=== PATIENT | female | born 1930 | race Caucasian/White ===

== ENCOUNTER → 2017-06-18 | Outpatient (CLI) | payer BC ==
[~2017-06-18] MED LIST: LEVO100T7 PO; MULT-602 PO; PRED10TA PO
[2017-06-18 16:39] LABS: BASO % 0.1 %; BASO ABS # 0.02 K/uL (0-0.2); COMPLETE YES; EOS % 0.1 %; HEMATOCRIT 41.5 % (37-47); IG% 0.6 %; LYMPH % 7.3 %; LYMPH ABS # 1.17 K/uL (1.2-3.4); MEAN CORPUSCULAR HEMOGLOBIN 28.7 pg (25-34); MEAN CORPUSCULAR HGB CONC 31.6 g/dl (32-36); MEAN PLATELET VOLUME 10.1 fL (7.4-10.4); NEUT % 87.9 %; PLATELET COUNT 429 K/uL (130-400); RED BLOOD COUNT 4.56 M/uL (4.2-5.4); WHITE BLOOD COUNT 15.94 K/uL (4.8-10.8)
[2017-06-18 17:15] LABS: ALT/SGPT 11 U/L (12-78); BLOOD UREA NITROGEN 10 mg/dl (7-18); BUN/CREATININE RATIO 12.3 (10-20); CALCIUM 8.7 mg/dl (8.5-10.1); CARBON DIOXIDE 28 mmol/L (21-32); CHLORIDE 106 mmol/L (98-107); CREATININE 0.83 mg/dl (0.60-1.20); GLUCOSE 115 mg/dl (70-99); POTASSIUM 4.2 mmol/L (3.5-5.1); SODIUM 141 mmol/L (136-145)
[2017-06-18 17:25] LABS: ALB/GLOB RATIO 0.8 (0.9-2); ALKALINE PHOSPHATASE 35 U/L (45-117); AST/SGOT 11 U/L (15-37)
--- NOTE | 2017-06-24 11:32 | CODING QUERY MEDICAL NECESSITY ---
CQSUPPORTING DIAGNOSIS NEEDED A supporting diagnosis is required for the test/procedure performed on this patient in order for us to be reimbursed by the patient's insurance. Please provide a supporting diagnosis for the following test/procedure listed below next to the test name along with your signature. *If there is no additional diagnosis for this patient that would support the following test/procedure please document that below next to the test/procedure. Test(s)/Procedure(s) that require a supporting diagnosis: DOS 06/18/17 VITAMIN D TEST Provider Signature: Date: Thank you Loren Mckeon Health Information Management Once completed, please kindly fax back to [phone] For questions please call [phone]
== END | disposition home or self-care (01) ==
LOC: C.LABBC 15:08
PROVIDERS: ATTEND Internal Medicine Geriatric Medicine
DX: J45.909 Unspecified asthma, uncomplicated (principal); M81.0 Age-related osteoporosis without current pathological fracture; E78.5 Hyperlipidemia, unspecified; E03.9 Hypothyroidism, unspecified; K06.8 Other specified disorders of gingiva and edentulous alveolar ridge; E55.9 Vitamin D deficiency, unspecified

== ENCOUNTER 2019-09-21 14:50 | Inpatient (IN) ==
[2019-09-21 15:34] LABS: Basophils # (auto) 0.02 K/uL (0-0.2); Basophils % (auto) 0.1 %; Eosinophils # (auto) 0.11 K/uL (0-0.5); Eosinophils % (auto) 0.6 %; Hematocrit (blood only) 41.3 % (37-47); Hemoglobin 13.7 g/dL (12.0-16.0); Immature Granulocytes # (auto) 0.11 K/uL (0.00-0.02); Immature Granulocytes % (auto) 0.6 %; Lymphocytes # (auto) 2.39 K/uL (1.2-3.4); Mean Corpuscular Hemoglobin 30.4 pg (25-34); Mean Corpuscular Hgb Conc 33.2 g/dL (32-36); Mean Corpuscular Volume 91.8 fL (80-100); Mean Platelet Volume 9.9 fL (7.4-10.4); Monocytes # (auto) 1.82 K/uL (0.11-0.59); Monocytes % (auto) 10.7 %; Neutrophils # (auto) 12.62 K/uL (1.4-6.5); Platelet Count 311 K/uL (130-400); RDW Coefficient of Variation 13.4 % (11.5-14.5); RDW Standard Deviation 44.8 fL (36.4-46.3); White Blood Count 17.07 K/uL (4.8-10.8)
[2019-09-21 15:50] LABS: Alanine Aminotransferase 11 U/L (12-78); Albumin Level 3.7 gm/dl (3.4-5.0); Aspartate Aminotransferase 9 U/L (15-37); BUN Creatinine Ratio 19.3 (10-20); Blood Urea Nitrogen 16 mg/dl (7-18); Calcium 9.2 mg/dl (8.5-10.1); Carbon Dioxide 25 mmol/L (21-32); Chloride 106 mmol/L (98-107); Est GFR (African American) 74.6; Est GFR (Non-African American) 64.4; Glucose 92 mg/dl (70-99); Potassium 3.4 mmol/L (3.5-5.1); Sodium 141 mmol/L (136-145)
--- NOTE | 2019-09-21 15:52 | Emergency Department Note ---
General (ED) Blank Date of Service September 21, 2019 ED Visit Note I attest that I saw and examined this patient and participated in her care under the direction of Dr. Mendoza. Please see his note for clinical assessment and course. Resident Activity Tracking Resident Involvement: Resident Care Provided Care Provided: Adult ED
[2019-09-21 15:53] LABS: Albumin Globulin Ratio 1.1 (0.9-2); Alkaline Phosphatase 26 U/L (45-117); Bilirubin,Total 0.7 mg/dl (0.2-1); Globulin 3.2 gm/dl (2.5-4.0); Total Protein 6.9 gm/dl (6.4-8.2)
[2019-09-21 15:55] LABS: Partial Thromboplastin Ratio 0.8; Partial Thromboplastin Time 21.9 Seconds (21.0-31.0); Prothrombin Time 10.1 Seconds (9.0-12.0)
[2019-09-21] MEDS ORDERED: IOVERSOL 100ml IV PRN ×2 (16:07→16:13)
--- NOTE | 2019-09-21 16:45 | CT Scan Report ---
CHEST CT WITH CONTRAST CT DOSE: 169.70 mGy.cm HISTORY: Patient presents with a right-sided chest wall mass. right chest wall mass TECHNIQUE: Multiaxial CT images of the chest were performed following the IV administration of 93 cc of Optiray 320. A dose lowering technique was utilized adhering to the principles of ALARA. COMPARISON: None. FINDINGS: Mild cardiomegaly. Coronary arterial calcifications are noted. Fusiform dilation of the ascending tho racic aorta, 4.0 x 4.0 cm. No dissection. Extensive calcified plaque of the thoracic aorta with tortu osity of the descending thoracic aorta. Patency of the imaged great vessels. The opacified pulmonary artery appears unremarkable. There is no pneumothorax or pleural effusion. Mild subpleural bleb forma tion of the lung apices. No overt pulmonary edema or focal airspace consolidation to suggest pneumoni a. Mild subsegmental bibasilar atelectasis. There are no enlarged mediastinal or hilar lymph nodes id entified. Pathologically enlarged right axillary lymph nodes measure up to 2.3 x 1.4 cm. There is a l arge heterogeneously enhancing irregular spiculated mass of the superior right breast measuring up to 4.2 x 3.3 x 3.3 cm with a large terminal component measuring up to 2.7 cm along its superior margin. Additionally, there are multiple additional separate enhancing masses within additional quadrants of the breast measuring up to 1.6 cm. Dermal thickening is noted throughout the right breast as well. Large hiatal hernia. Indeterminate 8 mm hypodense lesion of the right hepatic lobe. Degenerative edmond ges of the spine and shoulders. No suspicious lytic or blastic bony lesions. IMPRESSION: 1. Multiple enhancing masses throughout several quadrants of the right breast compatible with multice ntric breast cancer, the largest mass measures up to 4.2 cm and demonstrates a large dermal component of the superior right breast. Associated pathologic normal thickening is also noted throughout the r ight breast. Correlation with diagnostic mammogram and ultrasound is needed. 2. Metastatic right axillary adenopathy. 3. No acute intrathoracic abnormality. 4. Fusiform dilation of the ascending thoracic aorta, 4.0 x 4.0 cm. 5. Large hiatal hernia. Electronically signed by: Rehan Subramanian M.D. 09/21/2019 4:44 PM
--- NOTE | 2019-09-21 19:31 | Emergency Department Note ---
Entered by Coco Ocampo acting as a scribe for ED Provider Note CHIEF COMPLAINT: Rectal bleed HISTORY OF PRESENT ILLNESS: The patient is an 89 year old female who presents to the Emergency Room with complaints of rectal bleeding since yesterday morning. She states the bowl was full of "bright red blood" after a bowel movement. She did not feel short of breath, dizzy or weak, so she went about her day. This morning, she had 3 ep isodes of bright red blood with bowel movements, so she called her daughter and was referred here to the ED as she complained of feeling weak. She does not take daily blood thinners. She denies any abdominal pain. The patient does complain of a mass on her left breast that she has had since the summer. She states she has been putting Neosporin on it, and denies getting any drainage from the mass. Pt denies LOC, headache, fevers, chills, loss of weight, diaphoresis, visual changes, neck pain, chest pain, breathing difficulties, nausea, vomiting, abdominal pain, back pain, melena, urinary symptoms, numbness, weakness, lymphadenopathy, rash, or other complaints. REVIEW OF SYSTEMS: See HPI for pertinent positives and negatives. A total of ten systems were reviewed and were otherwise negative. PMHx/PSHx: Asthma. Hyperthyroidism. SOCIAL HISTORY: Patient lives at home. PHYSICAL EXAM: GENERAL: Awake, alert, well-appearing, in no distress HENT: Normocephalic, atraumatic. Oropharynx unremarkable. EYES: PERRL. Normal conjunctiva. Sclera non-icteric. NECK: Inspection normal. Non-tender. Supple. No nuchal rigidity. FROM. No masses. RESPIRATORY: Clear to auscultation. No wheezes. No rales. Normal respiratory effort. CARDIAC: Normal rate. Normal rhythm. No murmurs. No rubs. Extremities warm and well perfused. Pulses equal. No JVD. CHEST: Large round indurated mass in the right breast, no drainage. GI: Soft, non-distended. No tenderness to palpation. No rebound or guarding. No masses. RECTAL: Performed by Dr. Elza Mak, DO, rust colored stool, heme positive. MUSCULOSKELETAL: Atraumatic. Chest examination reveals no tenderness. The back is symmetrical on inspection without obvious abnormality. There is no CVA tenderness to palpation. No joint edema. LOWER EXTREMITIES: Calves are equal size bilaterally and non-tender. No edema. No discoloration. NEURO: Normal sensorium. No sensory or motor deficits noted. SKIN: No rash or jaundice noted. EMERGENCY DEPARTMENT COURSE: 1510: Past medical records reviewed. The patient was evaluated in room A4B, and a complete history and physical examination were performed. 1726: I reevaluated and discussed test results with the patient. I discussed further hospitalization with her and she is agreeable. 1757: I spoke with Dr. Nia Herron about the patient's case and he will turn the patient over to Dr. Benjamin Herron. 1917: I spoke with Dr. Benjamin Herron about the patient's case and he will accept the patient for further evaluation. MEDICAL DECISION MAKING: Triage Nursing notes reviewed and agree them. Additional history obtained from the the patient's daughter. The patient's history was concerning for possible gastrointestinal bleeding. Differential diagnosis: Etiologies such as diverticulosis, AVM, coagulopathy, colitis, inflammatory bowel disease, malignancy,Niurka-Flanagan tear, esophagitis, peptic ulcer disease, variceal bleed, gastritis, epistaxis, fissure, hemorrhoids, as well as others were entertained. Physical exam: As above. The patient has a large mass in the right breast. This is concerning for malignancy. ER treatment provided: Monitoring On reassessment the patient remained stable. No additional bleeding. Diagnostics interpreted by me: ECG: Sinus rhythm. The labs revealed a leukocytosis on CBC. Chemistry panel was unremarkable. Imaging studies: CT imaging of the chest was performed and reveals a very concerning right breast mass and lymphadenopathy. Patient was informed. Further management will be necessary in the hospital. Consultation: A consultation was placed with the hospitalist. The case was discussed and diagnostics were reviewed. The patient was evaluated in the ER for further treatment. The patient was seen and examined with Dr. Elza Westfall, resident physician. We discussed the case and treatments ordered, reviewed the results, and determine the disposition. I have been directly involved with the management and disposition as well as independently evaluated the patient as documented in this note. IMPRESSION: GI Bleed, Right breast mass, Weakness, and Leukocytosis. PLAN: Admitted to Dr. Nia Herron. The scribe's documentation has been prepared under my direction and personally reviewed by me in its entirety. I confirm that the note above accurately reflects all work, treatment, procedures, and medical decision making performed by me. 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 Beliefs That Will Affect Care: None marital status: / Current Living Situation: Family Feels Safe at Home: Yes Smoking Status: Unknown if ever smoked Hx Alcohol Use: No Hx Substance Use: No Results & Data Vital Signs Vital Signs - 24 hr 09/21/19 14:52 09/21/19 15:16 09/21/19 16:15 Temperature 36.3 C L Temperature Source Oral Pulse Rate 79 Pulse Rate [Apical] 77 Pulse Rate from SpO2 Sensor Pulse Rhythm Regular Pulse Rhythm [Apical] Regular Pulse Strength Normal Pulse Strength [Apical] Normal Respiratory Rate 20 18 Respiratory Effort / Characteristics Non-Labored Non-Labored Spontaneous Respiratory Depth Normal Normal Respiratory Pattern Regular Regular Blood Pressure 126/83 Blood Pressure [Right Arm] 135/72 Blood Pressure Mean 97 Blood Pressure Mean [Right Arm] 93 Blood Pressure Position Sitting Blood Pressure Position [Right Arm] Lying Pulse Oximetry 98 99 95 Oxygen Delivery Method Room Air Room Air Room Air Sepsis Recent Fever Within 48 Hours No Sepsis New/Unexplained Change in Mental Status No Sepsis Action Taken by Nursing No Action Required 09/21/19 17:48 09/21/19 18:00 09/21/19 18:01 Temperature Temperature Source Pulse Rate 84 80 Pulse Rate [Apical] 78 Pulse Rate from SpO2 Sensor 79 80 Pulse Rhythm Pulse Rhythm [Apical] Regular Pulse Strength Pulse Strength [Apical] Normal Respiratory Rate 16 19 18 Respiratory Effort / Characteristics Non-Labored Spontaneous Respiratory Depth Normal Respiratory Pattern Regular Blood Pressure 112/69 Blood Pressure [Right Arm] 114/72 Blood Pressure Mean 74 Blood Pressure Mean [Right Arm] 86 Blood Pressure Position Blood Pressure Position [Right Arm] Lying Pulse Oximetry 96 92 93 Oxygen Delivery Method Room Air Room Air Room Air Sepsis Recent Fever Within 48 Hours Sepsis New/Unexplained Change in Mental Status Sepsis Action Taken by Nursing 09/21/19 18:30 09/21/19 18:31 09/21/19 19:00 Temperature Temperature Source Pulse Rate 82 84 82 Pulse Rate [Apical] Pulse Rate from SpO2 Sensor 82 86 82 Pulse Rhythm Pulse Rhythm [Apical] Pulse Strength Pulse Strength [Apical] Respiratory Rate 20 20 15 Respiratory Effort / Characteristics Respiratory Depth Respiratory Pattern Blood Pressure 113/77 117/65 Blood Pressure [Right Arm] Blood Pressure Mean 82 72 Blood Pressure Mean [Right Arm] Blood Pressure Position Blood Pressure Position [Right Arm] Pulse Oximetry 94 93 94 Oxygen Delivery Method Room Air Room Air Room Air Sepsis Recent Fever Within 48 Hours Sepsis New/Unexplained Change in Mental Status Sepsis Action Taken by Nursing 09/21/19 19:01 09/21/19 19:30 09/21/19 19:31 Temperature Temperature Source Pulse Rate 78 73 99 H Pulse Rate [Apical] Pulse Rate from SpO2 Sensor 80 Pulse Rhythm Pulse Rhythm [Apical] Pulse Strength Pulse Strength [Apical] Respiratory Rate 24 21 23 Respiratory Effort / Characteristics Respiratory Depth Respiratory Pattern Blood Pressure 144/71 H Blood Pressure [Right Arm] Blood Pressure Mean 118 Blood Pressure Mean [Right Arm] Blood Pressure Position Blood Pressure Position [Right Arm] Pulse Oximetry 94 96 95 Oxygen Delivery Method Room Air Room Air Room Air Sepsis Recent Fever Within 48 Hours Sepsis New/Unexplained Change in Mental Status Sepsis Action Taken by Retirement Medications Current Medication List: was personally reviewed by me Laboratory Data Attestation: I reviewed the patient's lab results. Result diagrams: 09/26/19 04:34 09/26/19 04:34 Lab Results 09/21/19 09/21/19 09/21/19 Range/Units 15:21 15:21 15:21 WBC 17.07 H (4.8-10.8) K/uL RBC 4.50 (4.2-5.4) M/uL Hgb 13.7 (12.0-16.0) g/dL Hct 41.3 (37-47) % MCV 91.8 (80-100) fL MCH 30.4 (25-34) pg MCHC 33.2 (32-36) g/dL RDW Std Deviation 44.8 (36.4-46.3) fL RDW Coeff of Sam 13.4 (11.5-14.5) % Plt Count 311 (130-400) K/uL MPV 9.9 (7.4-10.4) fL Immature Gran % (Auto) 0.6 % Neut % (Auto) 74.0 % Lymph % (Auto) 14.0 % [place] % (Auto) 10.7 % Eos % (Auto) 0.6 % Baso % (Auto) 0.1 % Immature Gran # (Auto) 0.11 H (0.00-0.02) K/uL Neut # (Auto) 12.62 H (1.4-6.5) K/uL Lymph # (Auto) 2.39 (1.2-3.4) K/uL [place] # (Auto) 1.82 H (0.11-0.59) K/uL Eos # (Auto) 0.11 (0-0.5) K/uL Baso # (Auto) 0.02 (0-0.2) K/uL PT 10.1 (9.0-12.0) Seconds INR 1.0 (0.9-1.1) APTT 21.9 (21.0-31.0) Seconds PTT Ratio 0.8 Sodium 141 (136-145) mmol/L Potassium 3.4 L (3.5-5.1) mmol/L Chloride 106 (98-107) mmol/L Carbon Dioxide 25 (21-32) mmol/L Anion Gap 10.0 (3-11) BUN 16 (7-18) mg/dl Creatinine 0.81 (0.6-1.2) mg/dl Est Cr Clr Drug Dosing Not Reportable Est GFR ( Amer) 74.6 Est GFR (Non-Af Amer) 64.4 BUN/Creatinine Ratio 19.3 (10-20) Glucose 92 (70-99) mg/dl Calcium 9.2 (8.5-10.1) mg/dl Total Bilirubin 0.7 (0.2-1) mg/dl AST 9 L (15-37) U/L ALT 11 L (12-78) U/L Alkaline Phosphatase 26 L (45-117) U/L Total Protein 6.9 (6.4-8.2) gm/dl Albumin 3.7 (3.4-5.0) gm/dl Globulin 3.2 (2.5-4.0) gm/dl Albumin/Globulin Ratio 1.1 (0.9-2) Blood Type Antibody Screen 09/21/19 09/21/19 Range/Units 15:21 19:57 WBC 16.41 H (4.8-10.8) K/uL RBC 4.22 (4.2-5.4) M/uL Hgb 12.8 (12.0-16.0) g/dL Hct 38.5 (37-47) % MCV 91.2 (80-100) fL MCH 30.3 (25-34) pg MCHC 33.2 (32-36) g/dL RDW Std Deviation 43.9 (36.4-46.3) fL RDW Coeff of Sam 13.3 (11.5-14.5) % Plt Count 294 (130-400) K/uL MPV 9.6 (7.4-10.4) fL Immature Gran % (Auto) 0.5 % Neut % (Auto) 77.9 % Lymph % (Auto) 12.9 % [place] % (Auto) 7.9 % Eos % (Auto) 0.6 % Baso % (Auto) 0.2 % Immature Gran # (Auto) 0.09 H (0.00-0.02) K/uL Neut # (Auto) 12.77 H (1.4-6.5) K/uL Lymph # (Auto) 2.12 (1.2-3.4) K/uL [place] # (Auto) 1.30 H (0.11-0.59) K/uL Eos # (Auto) 0.10 (0-0.5) K/uL Baso # (Auto) 0.03 (0-0.2) K/uL PT (9.0-12.0) Seconds INR (0.9-1.1) APTT (21.0-31.0) Seconds PTT Ratio Sodium (136-145) mmol/L Potassium (3.5-5.1) mmol/L Chloride (98-107) mmol/L Carbon Dioxide (21-32) mmol/L Anion Gap (3-11) BUN (7-18) mg/dl Creatinine (0.6-1.2) mg/dl Est Cr Clr Drug Dosing Est GFR ( Amer) Est GFR (Non-Af Amer) BUN/Creatinine Ratio (10-20) Glucose (70-99) mg/dl Calcium (8.5-10.1) mg/dl Total Bilirubin (0.2-1) mg/dl AST (15-37) U/L ALT (12-78) U/L Alkaline Phosphatase (45-117) U/L Total Protein (6.4-8.2) gm/dl Albumin (3.4-5.0) gm/dl Globulin (2.5-4.0) gm/dl Albumin/Globulin Ratio (0.9-2) Blood Type O Positive Antibody Screen NEGATIVE Administered Medications Discontinued Medications Iron Sucrose 100 mg/ Sodium (Chloride) 105 mls @ 420 mls/hr IV TODAY@1145 ONE Stop: 09/26/19 11:59 Last Infusion: 09/26/19 12:52 Dose: 0 mls/hr Documented by: [id number] Admin: 09/26/19 12:25 Dose: 420 mls/hr Documented by: [id number] Influenza Virus Vaccine (Fluzone High-Dose Pf) 0.5 ml IM .ONCE ONE Stop: 09/21/19 22:01 Last Admin: 09/26/19 13:26 Dose: Not Given Documented by: [id number] Ioversol (Optiray 320 100ml) 93 ml IV ONCE PRN PRN Reason: Interaction Checking Stop: 09/25/19 16:12 Last Admin: 09/21/19 16:13 Dose: 93 ml Documented by: [id number] Ioversol (Optiray 320 100ml) 91 ml IV ONCE PRN PRN Reason: Interaction Checking Stop: 09/26/19 17:24 Last Admin: 09/22/19 17:26 Dose: 91 ml Documented by: [id number] Levothyroxine Sodium (Synthroid) 75 mcg PO DAILYBB ROXY Stop: 10/22/19 06:29 Last Admin: 09/26/19 06:25 Dose: 75 mcg Documented by: [id number] Admin: 09/25/19 05:54 Dose: 75 mcg Documented by: [id number] Admin: 09/24/19 05:31 Dose: 75 mcg Documented by: [id number] Admin: 09/23/19 10:57 Dose: 75 mcg Documented by: [id number] Admin: 09/23/19 05:39 Dose: Not Given Documented by: [id number] Admin: 09/22/19 05:24 Dose: 75 mcg Documented by: [id number] Lidocaine HCl (Xylocaine 2%) Confirm Administered Dose 2 ml INFIL .STK-MED ONE Stop: 09/25/19 15:17 Last Admin: 09/25/19 17:40 Dose: Not Given Documented by: [id number] Magnesium Citrate (Citrate) 296 ml PO TODAY@1600 [facility] Stop: 09/22/19 23:59 Last Admin: 09/22/19 17:40 Dose: 296 ml Documented by: [id number] Magnesium Citrate (Citrate) 296 ml PO NOW STA Stop: 09/24/19 15:42 Last Admin: 09/24/19 16:46 Dose: 296 ml Documented by: [id number] Phenylephrine HCl (Eber-Synephrine 500mcg/5ml) Confirm Administered Dose 100 mcg .ROUTE .STK-MED ONE Stop: 09/25/19 15:17 Last Admin: 09/25/19 17:40 Dose: Not Given Documented by: [id number] Polyethylene Glycol (Miralax) 238 gm PO DAILY@0900 [facility] Stop: 09/24/19 16:00 Last Admin: 09/24/19 10:07 Dose: 238 gm Documented by: [id number] Prednisone (Prednisone) 10 mg PO DAILY [facility] Stop: 10/22/19 08:59 Last Admin: 09/26/19 08:38 Dose: 10 mg Documented by: [id number] Admin: 09/25/19 09:09 Dose: 10 mg Documented by: [id number] Admin: 09/24/19 08:56 Dose: 10 mg Documented by: [id number] Admin: 09/23/19 09:36 Dose: 10 mg Documented by: [id number] Admin: 09/22/19 09:28 Dose: 10 mg Documented by: [id number] Propofol (Diprivan) Confirm Administered Dose 400 mg IV .STK-MED ONE Stop: 09/25/19 15:17 Last Admin: 09/25/19 17:40 Dose: Not Given Documented by: [id number] Sodium Biphosphate/Sodium Phosphate (Fleet Enema) 132 ml PA NOW STA Stop: 09/25/19 06:59 Last Admin: 09/25/19 08:00 Dose: 132 ml Documented by: [id number] Imaging Data Radiologist's Impression: Radiology results as stated below per my review and the radiologist's interpretation: CHEST CT WITH CONTRAST CT DOSE: 169.70 mGy.cm HISTORY: Patient presents with a right-sided chest wall mass. right chest wall mass TECHNIQUE: Multiaxial CT images of the chest were performed following the IV administration of 93 cc of Optiray 320. A dose lowering technique was utilized adhering to the principles of ALARA. COMPARISON: None. FINDINGS: Mild cardiomegaly. Coronary arterial calcifications are noted. Fusiform dilation of the ascending thoracic aorta, 4.0 x 4.0 cm. No dissection. Extensive calcified plaque of the thoracic aorta with tortuosity of the descending thoracic aorta. Patency of the imaged great vessels. The opacified pulmonary artery appears unremarkable. There is no pneumothorax or pleural effusion. Mild subpleural bleb formation of the lung apices. No overt pulmonary edema or focal airspace consolidation to suggest pneumonia. Mild subsegmental bibasilar atelectasis. There are no enlarged mediastinal or hilar lymph nodes identified. Pathologically enlarged right axillary lymph nodes measure up to 2.3 x 1.4 cm. There is a large heterogeneously enhancing irregular spiculated mass of the superior right breast measuring up to 4.2 x 3.3 x 3.3 cm with a large terminal component measuring up to 2.7 cm along its superior margin. Additionally, there are multiple additional separate enhancing masses within additional quadrants of the breast measuring up to 1.6 cm. Dermal thickening is noted throughout the right breast as well. Large hiatal hernia. Indeterminate 8 mm hypodense lesion of the right hepatic lobe. Degenerative changes of the spine and shoulders. No suspicious lytic or blastic bony lesions. IMPRESSION: 1. Multiple enhancing masses throughout several quadrants of the right breast compatible with multicentric breast cancer, the largest mass measures up to 4.2 cm and demonstrates a large dermal component of the superior right breast. Associated pathologic normal thickening is also noted throughout the right breast. Correlation with diagnostic mammogram and ultrasound is needed. 2. Metastatic right axillary adenopathy. 3. No acute intrathoracic abnormality. 4. Fusiform dilation of the ascending thoracic aorta, 4.0 x 4.0 cm. 5. Large hiatal hernia. Electronically signed by: Rehan Subramanian M.D. 09/21/2019 4:44 PM ECG Data Attestation: I personally reviewed and interpreted this ECG as follows: Indication: + weakness Rate (beats per minute): 85 Rhythm: sinus with SA ECG Intervals/blocks: + Normal QRS ECG [place]: + Normal ECG ST segments: no ST depression and no ST elevation ECG Findings: no PACs and no PVCs Blood Pressure Blood Pressure Findings: Normal blood pressure Blood Pressure Disposition: further management by hospitalist Discharge Plan Visit Data *Final* Discharge Date/Time: 09/21/19 21:00 Chief Complaint: Rectal Bleed Stated Complaint: RECTAL BLEEDING ED Provider: Mamadou Mendoza ED Midlevel Provider: Elza Mak Discharge Problem: Lower gastrointestinal hemorrhage Patient Disposition: Admitted As Inpatient Condition: Good Discharge Instructions Interventions: ED Discharge Assessment Last Done: 09/21/19 21:00 The scribe's documentation has been prepared under my direction and personally reviewed by me in its entirety. I confirm that the note above accurately reflects all work, treatment, procedures, and medical decision making performed by me.
[2019-09-21 20:09] LABS: Basophils # (auto) 0.03 K/uL (0-0.2); Basophils % (auto) 0.2 %; Eosinophils % (auto) 0.6 %; Hematocrit (blood only) 38.5 % (37-47); Hemoglobin 12.8 g/dL (12.0-16.0); Immature Granulocytes # (auto) 0.09 K/uL (0.00-0.02); Immature Granulocytes % (auto) 0.5 %; Lymphocytes # (auto) 2.12 K/uL (1.2-3.4); Lymphocytes % (auto) 12.9 %; Mean Corpuscular Hemoglobin 30.3 pg (25-34); Mean Corpuscular Hgb Conc 33.2 g/dL (32-36); Mean Corpuscular Volume 91.2 fL (80-100); Mean Platelet Volume 9.6 fL (7.4-10.4); Monocytes % (auto) 7.9 %; Neutrophils # (auto) 12.77 K/uL (1.4-6.5); Neutrophils % (auto) 77.9 %; Platelet Count 294 K/uL (130-400); RDW Coefficient of Variation 13.3 % (11.5-14.5); RDW Standard Deviation 43.9 fL (36.4-46.3); Red Blood Count 4.22 M/uL (4.2-5.4); White Blood Count 16.41 K/uL (4.8-10.8)
--- NOTE | 2019-09-21 20:38 | History & Physical Report ---
Date of Service September 21, 2019 Assessment & Plan (1) Lower gastrointestinal hemorrhage: Ms. De Souza is an 89-year-old female with a past medical history of asthma, and hypothyroidism who presents to [facility] due to rectal bleeding. Breast cancer with metastases to axillary lymph nodes -Admit to med/surg -Mass noted on physical examination of right breast -CT chest revealed "multiple enhancing masses throughout the right breast compatible with multicentric breast cancer, with the largest mass measuring up to 4.2 cm. This is associated with metastatic right axillary adenopathy" -This is a new finding for the patient, and was discussed extensively with her and her family -Family wishes for patient to have full diagnostic work-up, and will consider treatment options going forward -Patient explicitly stated she would not want to have surgery -Hematology/oncology consulted for assistance with diagnostic work-up Lower GI bleed -Vitals stable -Hemoccult positive in ER, with hemorrhoids noted on rectal exam -the amount of blood passed does not seem consistent w/just hemorrhoids -> concerning for GI pathology as well -will order CT abdomen & pelvis to evaluate for metastatic disease -GI consulted -Hgb normal at 12.8, however did drop slightly from 13.7 on admission -monitor H&H, patient has been type and screened in case transfusion becomes necessary Thoracic aortic aneurysm -CT chest shows a 4 x 4 cm fusiform dilation of the ascending thoracic aorta -Outpatient follow-up recommended Asthma -No signs or symptoms of exacerbation at this time Hypothyroidism -Continue home levothyroxine ?Autoimmune disorder -Patient and her daughter report that she has been on 10 mg of prednisone for years for her asthma and for 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 De Souza is an 89-year-old female with a past medical history of asthma, and hypothyroidism who presents to [facility] due to rectal bleeding. The patient states that she was in her usual state of health, until yesterday morning, when she had an episode of bright red blood per rectum. She states that the blood was mixed in with her stool, however she passed lots of blood, which she stated filled up the entire toilet bowl. She denies any abdominal pain, or pain with passing bowel movements. She had another episode of the same this morning, which prompted her to come to the emergency department. She denies associated chest pain, shortness of breath or lightheadedness. She states that this has not happened to her in the past. She reports her last colonoscopy was approximately 15 years ago, and was normal. She denies a prior history of hemorrhoids. She has never had coffee-ground emesis. Of note, she has a mass in her right breast, which has been giving her some discomfort of late. She has been putting neosporin on it, which she states has not helped much. She states that her last mammogram was approximately 30 years ago, normal. She denies any fever, chills, appetite loss, or weight loss. Allergies Allergy/AdvReac Type Severity Reaction Status Date / Time Sulfa (Sulfonamide Allergy Unknown Unknown Verified 09/21/19 15:31 Antibiotics) theophylline Allergy Unknown Unknown Verified 09/21/19 15:31 Home Medications Home Medications Medication Instructions Recorded Confirmed Type prednisone 10 mg tablet 10 mg PO DAILY #30 tab 09/11/19 09/21/19 Rx levothyroxine 75 mcg PO QAM 09/21/19 09/21/19 History Past Med/Surg History Medical History Asthma Hypothyroidism No significant past surgical history Social History Preferred Language: Nepali Communication Ability: Effective Measurement Analyst Required: No Beliefs That Will Affect Care: None marital status: / Current Living Situation: Family Feels Safe at Home: Yes Smoking Status: Unknown if ever smoked Hx Alcohol Use: No Hx Substance Use: No Review of Systems Constitutional: no fever, no chills, no fatigue and no anorexia Respiratory: no cough, no dyspnea and no wheezing Cardiovascular: no chest pain, no palpitations, no syncope, no edema and no calf pain Gastrointestinal: + change in bowel habits; no abdominal pain, no nausea, no vomiting, no coffee ground emesis and no hematemesis Genitourinary: no dysuria and no difficulty urinating Physical Exam Constitutional: WD/WN, vitals as above + hard of hearing Eyes: PERRL, conjunctivae normal, anicteric sclerae ENMT: external ear and nose normal, oropharynx normal Respiratory: normal respiratory effort, lungs clear to auscultation Cardiovascular: RRR, no murmur, no edema Vessels: posterior tibial pulses present and dorsalis pedis pulses present Extremities: normal capillary refill; no calf tenderness and no pedal edema Gastrointestinal (Abdomen): normal bowel sounds, soft, nontender, no hepatosplenomegaly Musculoskeletal: no cyanosis or clubbing, extremities motor strength 5/5 Head/Neck/Chest: + abnormal inspection of chest wall (3-4cm indurated mass in right breast w/surrounding erythema, no drainage) Neurologic: PERRL, EOMI, accommodation nl, no face palsy, no dysarthria Results & Data Vital Signs (Past 12 Hours) Vital Signs Temp Pulse Pulse Resp BP BP Pulse Ox 09/21/19 19:31 99 H 23 144/71 H 95 09/21/19 19:30 73 21 96 09/21/19 19:01 78 24 94 09/21/19 19:00 82 15 117/65 94 09/21/19 18:31 84 20 93 09/21/19 18:30 82 20 113/77 94 09/21/19 18:01 80 18 93 09/21/19 18:00 84 19 112/69 92 09/21/19 17:48 78 16 114/72 96 09/21/19 16:15 77 18 135/72 95 09/21/19 15:16 99 09/21/19 14:52 36.3 C L 79 20 126/83 98 Code Status & VTE Plan VTE Prophylaxis Plan VTE Prophylaxis will be ordered: Yes Supervising Physician Co-Signing Physician Notes Attending addendum: I have physically seen this patient, have supervised the medical residents activities, and agree with the H&P unless as otherwise noted. Assessment and Plan: Lower GI bleeding- Admit to monitored bed. H&H every 6 hours. NPO IV fluids Check results of CT abdomen and pelvis. Consult gastroenterology. Breast cancer with mets to axillary lymph nodes/new diagnosis- Right breast with multiple areas of concern, with largest being 4.2 cm. Consult oncology, as patient's family wishes for diagnostic work-up, and will decide on potential therapy issues. Remainder of orders and notations as noted. Resident Activity Tracking Resident Involvement: Resident Care Provided Care Provided: Adult Hospital Medicine
[2019-09-21] MEDS ORDERED: MAGNESIUM HYDROXIDE SUSP 30 ML UDC PO PRN (21:20)
[2019-09-21] MEDS ORDERED: ACETAMINOPHEN 325 MG TAB PO PRN (21:20)
[2019-09-21] MEDS ORDERED: ALUMINUM/MAGNESIUM SUSP 30 ML UDC PO PRN (21:20)
[2019-09-21] MEDS ORDERED: INFLUENZA ADMINISTRATION CHARGE ONE (22:00)
[2019-09-21] MEDS ORDERED: INFLUENZA VACCINE HIGH DOSE 65+ 0.5 ML SYR IM ONE (22:00)
[2019-09-22] MEDS: LEVOTHYROXINE SODIUM 75 MCG TABLET PO SCH (05:24)
[2019-09-22 05:53] LABS: Basophils # (auto) 0.01 K/uL (0-0.2); Basophils % (auto) 0.1 %; Eosinophils # (auto) 0.02 K/uL (0-0.5); Eosinophils % (auto) 0.2 %; Hemoglobin 11.7 g/dL (12.0-16.0); Immature Granulocytes # (auto) 0.05 K/uL (0.00-0.02); Immature Granulocytes % (auto) 0.4 %; Lymphocytes # (auto) 1.25 K/uL (1.2-3.4); Lymphocytes % (auto) 9.6 %; Mean Corpuscular Hemoglobin 30.4 pg (25-34); Mean Corpuscular Hgb Conc 33.4 g/dL (32-36); Mean Corpuscular Volume 90.9 fL (80-100); Mean Platelet Volume 9.7 fL (7.4-10.4); Monocytes # (auto) 0.79 K/uL (0.11-0.59); Monocytes % (auto) 6.1 %; Neutrophils # (auto) 10.93 K/uL (1.4-6.5); Neutrophils % (auto) 83.6 %; Platelet Count 298 K/uL (130-400); RDW Coefficient of Variation 13.3 % (11.5-14.5); RDW Standard Deviation 44.1 fL (36.4-46.3); Red Blood Count 3.85 M/uL (4.2-5.4); White Blood Count 13.05 K/uL (4.8-10.8)
[2019-09-22 06:28] LABS: BUN Creatinine Ratio 19.3 (10-20); Calcium 8.1 mg/dl (8.5-10.1); Creatinine Clr Calc Pharmacy 50.6 ml/min; Est GFR (African American) 91.7; Est GFR (Non-African American) 79.1; Potassium 4.1 mmol/L (3.5-5.1)
[2019-09-22] MEDS: predniSONE 10 MG TABLET PO SCH (09:28)
--- NOTE | 2019-09-22 14:10 | Hospitalist Progress Note ---
Date of Service September 22, 2019 Assessment & Plan (1) Lower gastrointestinal hemorrhage: -Hemoccult positive in ER, with hemorrhoids noted on rectal exam -the amount of blood passed does not seem consistent w/just hemorrhoids -> concerning for GI pathology as well - CT abdomen & pelvis to evaluate for metastatic disease pending -GI consulted (2) Acute blood loss anemia: Hgb decreased by 2 g from admission Patient reports more blood in her stool this morning Continue to trend H&H (3) Breast cancer metastasized to axillary lymph node: - Patient mentined a mass that was bothering her on her breast on admission -CT chest revealed "multiple enhancing masses throughout the right breast compatible with multicentric breast cancer, with the largest mass measuring up to 4.2 cm. This is associated with metastatic right axillary adenopathy" - Heme onc consulted - patient will have biopsy at the [facility] on October 10. 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 De Souza is concerned about getting the GI bleeding to stop as she is looking forward to getting back home. I did answer questions for her and her daughter. Discussed biopsy and they would like to schedule it for after Thanksgiving as Ms. De Souza will be traveling to see her family over the holiday and leaves later this week. She denies any pain or discomfort. The mass on her right breast causes her discomfort when positioning to sleep but is not painful. ROS Constitutional: no chills, aches, sweats or fever Respiratory: no sob,cough, sputum, or wheezing Cardiac: no chest pain, palpitations, edema, orthopnea or lightheadedness GI: no abdominal pain, nausea, vomiting, diarrhea or constipation : no dysuria or hesitancy Extremities: no joint pain or weakness Skin: no rash All other systems reviewed and negative Physical Exam Physical Exam: General: no distress Eyes: normal inspection, PERLL Respiratory: chest non tender, clear to auscultation, normal breath sounds, no respiratory distress, no accessory muscle use Cardiac: regular rate and rhythm, no rub or gallop, no murmur, no edema, no jvd GI/: active bowel sounds, no abd pain or tenderness, soft, non distended Extremities: normal range of motion, normal strength, non tender Neuro/Psych: alert and oriented x 3, normal mood and affect Skin: normal color, dry, right breast hardened mass with surrounding erythema. Results & Data Vital Signs (Past 12 Hours) Vital Signs Temp Pulse Resp BP Pulse Ox 09/22/19 07:59 36.3 C L 68 18 122/58 L 93 PG Care Time/CCT Total # of Minutes Spent Total Time Spent with Patient: Total time spent is greater than 50% in coordination of care (as documented) at patient's floor/unit and/or counseling patient:
--- NOTE | 2019-09-22 15:54 | Gastrointestinal Consultation ---
Date of Consultation September 22, 2019 Assessment & Plan (1) Lower gastrointestinal hemorrhage: Discusssed with patient and daugther options of conservative care vs colonoscopy. In either event would be helpful to speed up process of knowing if she stopped bleeding or not by giving laxative. Will give mag citrate after back from CT and they will decide tomorrow once CT back, labs back and results of laxative whether to proceed with colonoscopy or not. acute blood loss anemia--follow h and H breast mass and axillary nodes per hospitalist. History of Present Illness Reason for Consultation: GI bleeding Requesting Physician: DR Srinath Garcia Attending Physician: Sohan Vang MD History of Present Illness CC bleeding HPI Daughter with patient for H and P. Exam with nurse present. Pt had distant colonoscopy unknown results. Had rectal bleeding some type of red color for couple days prior to admission. No abd pain. Unclear if normal color stool mixed with it. Pt also note increased stool volume week before admit. Hgb 14.4 09/2018, 12.8 on admit and 11.7 today. She has breast mass noted by her and on CT of chest. Also on CT of chest axillary nodes, HH, thoracic aortic aneurysm. A/P CT ordered for today. Apparently had one bm today but unknown results. fhx neg for CRC SHx toboacco neg, ETOH neg Allergies Allergy/AdvReac Type Severity Reaction Status Date / Time Sulfa (Sulfonamide Allergy Unknown Unknown Verified 09/21/19 15:31 Antibiotics) theophylline Allergy Unknown Unknown Verified 09/21/19 15:31 Home Medications Home Medications Medication Instructions Recorded Confirmed Type prednisone 10 mg tablet 10 mg PO DAILY #30 tab 09/11/19 09/21/19 Rx levothyroxine 75 mcg PO QAM 09/21/19 09/21/19 History Patient History Medical History Asthma Hypothyroidism No significant past surgical history Social History Preferred Language: Wolof Communication Ability: Effective Pharmacy Consultant Required: No Beliefs That Will Affect Care: None marital status: / Current Living Situation: Family Feels Safe at Home: Yes Smoking Status: Unknown if ever smoked Hx Alcohol Use: No Hx Substance Use: No Review of Systems Review of Systems: All systems reviewed & are unremarkable except as noted in HPI & below Physical Exam Constitutional: WD/WN, vitals as above Eyes: PERRL, conjunctivae normal, anicteric sclerae ENMT: external ear and nose normal, oropharynx normal Respiratory: normal respiratory effort, lungs clear to auscultation Cardiovascular: RRR, no murmur, no edema Gastrointestinal (Abdomen): normal bowel sounds, soft, nontender, no hepatosplenomegaly rectal hemorrhoids, noted, no obvious mass, stools burgundy Musculoskeletal: no cyanosis or clubbing, extremities motor strength 5/5 Neurologic: patellar DTR's 2+ bilat, sensation intact Psychiatric: A+Ox3, euthymic affect Results & Data Vital Signs (Past 12 Hours) Vital Signs Temp Pulse Pulse Resp BP Pulse Ox 09/22/19 15:18 89 107/71 09/22/19 14:51 36.9 C 102 H 16 99/63 L 94 09/22/19 07:59 36.3 C L 68 18 122/58 L 93
[2019-09-22] MEDS ORDERED: MAGNESIUM CITRATE 296 ML/BTL PO SCH (16:00)
--- NOTE | 2019-09-22 16:58 | Oncology Consultation ---
Date of Consultation September 22, 2019 Assessment & Plan (1) Breast cancer metastasized to axillary lymph node: Ms. Stubbs appears to have a right breast cancer. She has evidence of sadiq metastasis, but so far no evidence of distant disease. I would obtain a CT A/P, particularly in light of her GI bleeding. We will need to establish a diagnosis. She expressed to me that she would not want to have surgery, even if her cancer was curable. I still think it would be beneficial to biopsy her breast mass. If it is ER/MO positive, which I suspect it will be in light of her history, she could be treated with endocrine therapy alone, which has a very favorable toxicity profile and is highly efficacious. We can make arrangements for a biopsy as an outpatient [facility]. Present on Admission?: Yes History of Present Illness Reason for Consultation: Breast mass Attending Physician: Sohan Vang MD History of Present Illness Ms. Stubbs is an 89 year old woman with a history of hypothyroidism and asthma. She presented to the ER yesterday with gross hematochezia. She had heme- positive stools and hemorrhoids by exam, but the volume of blood was thought to be more than would be anticipated of hemorrhoidal bleeding, so she was admitted for evaluation. During her workup in the ER, she was found to have a right breast mass. She is difficult to obtain a history from, as her hearing is fair and she mostly told me stories about her family's history in response to questions. Still, she responded appropriately to direct questions. She seemed to think the mass has been present for at least a year. She says it bothers her at night, when she rolls over in bed. It has not been bleeding, though recently she thought she shoud put some Neosporin on it. She opted not to tell anyone about it because she does not like seeing doctors. She denies any pain outside of the breast area. She did not think she had lost weight recently. She denied any back or bone pain. Allergies Allergy/AdvReac Type Severity Reaction Status Date / Time Sulfa (Sulfonamide Allergy Unknown Unknown Verified 09/21/19 15:31 Antibiotics) theophylline Allergy Unknown Unknown Verified 09/21/19 15:31 Home Medications Home Medications Medication Instructions Recorded Confirmed Type prednisone 10 mg tablet 10 mg PO DAILY #30 tab 09/11/19 09/21/19 Rx levothyroxine 75 mcg PO QAM 09/21/19 09/21/19 History Patient History Medical History Asthma Hypothyroidism No significant past surgical history Social History Preferred Language: [place] Arabian Communication Ability: Effective Bill Cutter Required: No Beliefs That Will Affect Care: None marital status: / Current Living Situation: Family Feels Safe at Home: Yes Smoking Status: Unknown if ever smoked Hx Alcohol Use: No Hx Substance Use: No Review of Systems Review of Systems: ROS limited by sometimes inappropriate responses. See HPI for pertinent positives and negatives. Physical Exam Constitutional: + thin and comfortable; no acute distress Eyes: + anicteric sclerae ENMT: external ear and nose normal, oropharynx normal Respiratory: normal respiratory effort, lungs clear to auscultation Cardiovascular: RRR, no murmur, no edema Chest (Breasts): Breast: + breast mass Additional Comments: I appreciated a large mass arising in the central portion of her right breast. It appeared to have a larger component inside her breast, but the part that was involving the skin measured ~4 cm in diameter. It was fungating but without ulceration or bleeding. She also had a palpable right axillary lymph node. Gastrointestinal (Abdomen): Inspection/Auscultation: normal bowel sounds; abdomen not distended Percussion/Palpation: abdomen soft; abdomen nontender Skin: no rashes, warm and dry Lymphatic: + axillary lymphadenopathy (on the right) Results & Data Vital Signs (Past 12 Hours) Vital Signs Temp Pulse Pulse Resp BP Pulse Ox 09/22/19 15:18 89 107/71 09/22/19 14:51 36.9 C 102 H 16 99/63 L 94 09/22/19 07:59 36.3 C L 68 18 122/58 L 93 Laboratory Results Laboratory Results - last 24 hr 09/21/19 09/22/19 09/22/19 19:57 05:20 05:20 WBC 16.41 H 13.05 H RBC 4.22 3.85 L Hgb 12.8 11.7 L Hct 38.5 35.0 L MCV 91.2 90.9 MCH 30.3 30.4 MCHC 33.2 33.4 RDW Std Deviation 43.9 44.1 RDW Coeff of Sam 13.3 13.3 Plt Count 294 298 MPV 9.6 9.7 Immature Gran % (Auto) 0.5 0.4 Neut % (Auto) 77.9 83.6 Lymph % (Auto) 12.9 9.6 Wagoner % (Auto) 7.9 6.1 Eos % (Auto) 0.6 0.2 Baso % (Auto) 0.2 0.1 Immature Gran # (Auto) 0.09 H 0.05 H Neut # (Auto) 12.77 H 10.93 H Lymph # (Auto) 2.12 1.25 Wagoner # (Auto) 1.30 H 0.79 H Eos # (Auto) 0.10 0.02 Baso # (Auto) 0.03 0.01 Sodium 142 Potassium 4.1 D Chloride 110 H Carbon Dioxide 27 Anion Gap 5.0 BUN 12 Creatinine 0.64 Est Cr Clr Drug Dosing 50.6 Est GFR ( Amer) 91.7 Est GFR (Non-Af Amer) 79.1 BUN/Creatinine Ratio 19.3 Glucose 105 H Calcium 8.[address] Chest, 09/21/19: IMPRESSION: 1. Multiple enhancing masses throughout several quadrants of the right breast compatible with multicentric breast cancer, the largest mass measures up to 4.2 cm and demonstrates a large dermal component of the superior right breast. Associated pathologic normal thickening is also noted throughout the right breast. Correlation with diagnostic mammogram and ultrasound is needed. 2. Metastatic right axillary adenopathy. 3. No acute intrathoracic abnormality. 4. Fusiform dilation of the ascending thoracic aorta, 4.0 x 4.0 cm. 5. Large hiatal hernia.
[2019-09-22] MEDS ORDERED: IOVERSOL 100ml IV PRN (17:25)
--- NOTE | 2019-09-22 17:30 | CT Scan Report ---
CT abd pelvis oral and IV con CLINICAL HISTORY: Suspected breast carcinoma.. Gastrointestinal hemorrhage. Possible metastatic disea se. COMPARISON STUDY: None. TECHNIQUE: The patient was scanned following administration of dilute oral contrast, and in a dynamic helical fashion during intravenous administration of 91 cc of Optiray 320. A dose lowering techniqu e was utilized adhering to the principles of ALARA. CT DOSE: 254.54 mGy.cm FINDINGS: Lower chest: There is a large hiatal hernia. There are no pleural effusions. Liver: The contrast-enhanced liver is normal in size, contour, and attenuation. There is no intrahepa tic biliary ductal dilatation. The hepatic veins and portal veins are patent. Gallbladder: Cholelithiasis Spleen: Normal in size and attenuation. Pancreas: Unremarkable. Adrenal glands: Unremarkable. Kidneys: There is symmetric renal cortical enhancement. The kidneys are normal in size without hydron ephrosis. Bowel: There is pandiverticulosis. There are no acute peridiverticular inflammatory changes. 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 There are no transition zone to indicate bowel obstruction. There is no ev idence of free air. There is a large duodenal diverticulum. There is a distal ileal lipoma versus ent wood contents. Peritoneum: There is no intraperitoneal free air or abdominal ascites. Vasculature: The abdominal aorta is normal in course and caliber. Adenopathy: None. Pelvic viscera: Multiple uterine fibroids are visualized. No pathologic adnexal masses are visualized . Skeletal structures: No destructive osseous lesions are seen. There is a grade 1 spondylolisthesis of L4 on L5. IMPRESSION: 1. No evidence of intra-abdominal or pelvic metastatic disease 2. No evidence of bowel obstruction. No evidence of free air 3. Pandiverticulosis. No evidence of acute diverticulitis. 4. Hiatal hernia 5. Cholelithiasis 6. Fibroid uterus Electronically signed by: Sang Nicholson M.D. 09/22/2019 5:29 PM
[2019-09-23] MEDS: LEVOTHYROXINE SODIUM 75 MCG TABLET PO SCH ×2 (05:39→10:57)
[2019-09-23 06:41] LABS: Basophils # (auto) 0.02 K/uL (0-0.2); Basophils % (auto) 0.2 %; Eosinophils # (auto) 0.16 K/uL (0-0.5); Eosinophils % (auto) 1.3 %; Hematocrit (blood only) 32.9 % (37-47); Hemoglobin 10.9 g/dL (12.0-16.0); Immature Granulocytes # (auto) 0.06 K/uL (0.00-0.02); Immature Granulocytes % (auto) 0.5 %; Lymphocytes # (auto) 2.06 K/uL (1.2-3.4); Lymphocytes % (auto) 16.2 %; Mean Corpuscular Hemoglobin 30.3 pg (25-34); Mean Corpuscular Hgb Conc 33.1 g/dL (32-36); Mean Corpuscular Volume 91.4 fL (80-100); Mean Platelet Volume 10.1 fL (7.4-10.4); Monocytes # (auto) 1.28 K/uL (0.11-0.59); Monocytes % (auto) 10.1 %; Neutrophils # (auto) 9.14 K/uL (1.4-6.5); Neutrophils % (auto) 71.7 %; Platelet Count 293 K/uL (130-400); RDW Coefficient of Variation 13.3 % (11.5-14.5); RDW Standard Deviation 44.6 fL (36.4-46.3); White Blood Count 12.72 K/uL (4.8-10.8)
[2019-09-23 07:13] LABS: Albumin Level 3.1 gm/dl (3.4-5.0); BUN Creatinine Ratio 21.8 (10-20); Calcium 8.2 mg/dl (8.5-10.1); Creatinine Clr Calc Pharmacy 46.9 ml/min; Est GFR (African American) 89.5; Est GFR (Non-African American) 77.2; Potassium 3.9 mmol/L (3.5-5.1)
[2019-09-23 07:18] LABS: Albumin Globulin Ratio 1.2 (0.9-2); Bilirubin,Total 0.7 mg/dl (0.2-1); Globulin 2.5 gm/dl (2.5-4.0); Total Protein 5.6 gm/dl (6.4-8.2)
[2019-09-23] MEDS: predniSONE 10 MG TABLET PO SCH (09:36)
--- NOTE | 2019-09-23 14:52 | Hospitalist Progress Note ---
Date of Service September 23, 2019 Assessment & Plan (1) Lower gastrointestinal hemorrhage: -the amount of blood passed does not seem consistent w/just hemorrhoids -> concerning for GI pathology as well - CT abdomen & pelvis without obstruction, inflammation or metastasis -GI consulted - possible colonoscopy tomorrow (2) Acute blood loss anemia: Hgb decreased by 3 g from admission No bleeding since this morning Continue to trend H&H (3) Breast cancer metastasized to axillary lymph node: - Patient mentined a mass that was bothering her on her breast on admission -CT chest revealed "multiple enhancing masses throughout the right breast compatible with multicentric breast cancer, with the largest mass measuring up to 4.2 cm. This is associated with metastatic right axillary adenopathy" - Heme onc consulted - patient will have biopsy at the [facility] on October 10. 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 De Souza had quite a number of bloody bowel movements over the night but has not had one since this morning. I reviewed CT results with her and her daughter and answered their questions. She has no pain. ROS Constitutional: no chills, aches, sweats or fever Respiratory: no sob,cough, sputum, or wheezing Cardiac: no chest pain, palpitations, edema, orthopnea or lightheadedness GI: no abdominal pain, nausea, vomiting, diarrhea or constipation : no dysuria or hesitancy Extremities: no joint pain or weakness Skin: no rash All other systems reviewed and negative Physical Exam Physical Exam: General: no distress Eyes: normal inspection, PERLL Respiratory: chest non tender, clear to auscultation, normal breath sounds, no respiratory distress, no accessory muscle use Cardiac: regular rate and rhythm, no rub or gallop, no murmur, no edema, no jvd GI/: active bowel sounds, no abd pain or tenderness, soft, non distended Extremities: normal range of motion, normal strength, non tender Neuro/Psych: alert and oriented x 3, normal mood and affect Skin: normal color, dry Results & Data Vital Signs (Past 12 Hours) Vital Signs Temp Pulse Resp BP Pulse Ox 09/23/19 07:14 36.4 C L 80 18 106/65 94 PG Care Time/CCT Total # of Minutes Spent Total Time Spent with Patient: Total time spent is greater than 50% in coordination of care (as documented) at patient's floor/unit and/or counseling patient:
--- NOTE | 2019-09-23 16:22 | Gastroenterology Progress Note ---
Date of Service September 23, 2019 Assessment & Plan (1) Lower gastrointestinal hemorrhage: Samson King I spoke with yesterday gave nurse message for me to call Barbi the patients daughter in law. I left message for Fernando to call but was able to get Barbi on the phone (asked permission from patient before I called). Because stools did not clear and H and H is drifting, Barbi states family is in agreement to proceed with colonoscopy. I discussed unless she has significant change in her bleeding, the colonoscopy will be done wednesday. Also discussed while it is most likely LGI bleed, I will also set her up for EGD wednesday in case colonoscopy is nondiagnostic for etiology. Proc and risks explained to Barbi which include but not limited to med reaction, bleeding, perforation, aspiration. Discussed increased risk in elderly patient. Will continue clears and start prep tomorrow am to give time for second round tomorrow evening if needed. acute blood loss anemia--drop today, continue to follow diverticulosis--could be source of bleeding large HH--no abd pain or n/v or dysphagia nor process on chest CT (i.e no volvulus) that requires urgent surgical intervention. breast mass and axillary nodes per hospitalist. Subjective CC GI bleeding HPI Spoke with nurse and patient. Pt had Mag citrate last night and had several bright red stools. Bleeding did not clear. No stools today. No abd pain. Tolerating clear liquids. CT a/p showed gallstones, large HH, diverticulosis, gallstones, duodenal diverticulum and ileal lipoma. Review of Systems Respiratory: no dyspnea Cardiovascular: no chest pain Physical Exam Constitutional: WD/WN, vitals as above ENMT: external ear and nose normal, oropharynx normal Respiratory: normal respiratory effort, lungs clear to auscultation Cardiovascular: RRR, no murmur, no edema Gastrointestinal (Abdomen): normal bowel sounds, soft, nontender, no hepatosplenomegaly Neurologic: PERRL, EOMI, accommodation nl, no face palsy, no dysarthria Psychiatric: A+Ox3, euthymic affect Results & Data Vital Signs (Past 12 Hours) Vital Signs Temp Pulse Resp BP Pulse Ox 09/23/19 14:59 36.6 C 84 17 127/78 94 09/23/19 07:14 36.4 C L 80 18 106/65 94
--- NOTE | 2019-09-23 16:44 | Gastroenterology Progress Note ---
Date of Service September 23, 2019 Results & Data Vital Signs (Past 12 Hours) Vital Signs Temp Pulse Resp BP Pulse Ox 09/23/19 14:59 36.6 C 84 17 127/78 94 09/23/19 07:14 36.4 C L 80 18 106/65 94
--- NOTE | 2019-09-23 17:27 | Hospitalist Progress Note ---
Date of Service September 23, 2019 Assessment & Plan (1) Lower gastrointestinal hemorrhage: -the amount of blood passed does not seem consistent w/just hemorrhoids -> concerning for GI pathology as well - CT abdomen & pelvis without obstruction, inflammation or metastasis -GI consulted - possible colonoscopy tomorrow (2) Acute blood loss anemia: Hgb decreased by 3 g from admission No bleeding since this morning Continue to trend H&H (3) Breast cancer metastasized to axillary lymph node: - Patient mentined a mass that was bothering her on her breast on admission -CT chest revealed "multiple enhancing masses throughout the right breast compatible with multicentric breast cancer, with the largest mass measuring up to 4.2 cm. This is associated with metastatic right axillary adenopathy" - Heme onc consulted - patient will have biopsy at the [facility] on October 10. 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
--- NOTE | 2019-09-23 20:57 | Billing Data ---
Coding Level of Care Code 27265 Initial Inpt Care Lvl 2
[2019-09-24 05:31] LABS: Basophils # (auto) 0.02 K/uL (0-0.2); Basophils % (auto) 0.2 %; Eosinophils # (auto) 0.14 K/uL (0-0.5); Eosinophils % (auto) 1.4 %; Hematocrit (blood only) 30.5 % (37-47); Hemoglobin 10.1 g/dL (12.0-16.0); Immature Granulocytes # (auto) 0.04 K/uL (0.00-0.02); Immature Granulocytes % (auto) 0.4 %; Lymphocytes # (auto) 2.46 K/uL (1.2-3.4); Lymphocytes % (auto) 23.8 %; Mean Corpuscular Hemoglobin 30.1 pg (25-34); Mean Corpuscular Hgb Conc 33.1 g/dL (32-36); Mean Platelet Volume 9.6 fL (7.4-10.4); Monocytes # (auto) 0.81 K/uL (0.11-0.59); Monocytes % (auto) 7.8 %; Neutrophils # (auto) 6.88 K/uL (1.4-6.5); Neutrophils % (auto) 66.4 %; Platelet Count 295 K/uL (130-400); RDW Coefficient of Variation 13.2 % (11.5-14.5); RDW Standard Deviation 44.2 fL (36.4-46.3); Red Blood Count 3.35 M/uL (4.2-5.4); White Blood Count 10.35 K/uL (4.8-10.8)
[2019-09-24] MEDS: LEVOTHYROXINE SODIUM 75 MCG TABLET PO SCH (05:31)
[2019-09-24 06:00] LABS: BUN Creatinine Ratio 20.1 (10-20); Creatinine Clr Calc Pharmacy 46.9 ml/min; Est GFR (African American) 89.5; Est GFR (Non-African American) 77.2; Potassium 3.7 mmol/L (3.5-5.1)
[2019-09-24 06:03] LABS: Albumin Globulin Ratio 1.2 (0.9-2); Bilirubin,Total 0.8 mg/dl (0.2-1); Globulin 2.6 gm/dl (2.5-4.0); Total Protein 5.6 gm/dl (6.4-8.2)
[2019-09-24] MEDS: predniSONE 10 MG TABLET PO SCH (08:56)
[2019-09-24] MEDS ORDERED: POLYETHYLENE (MIRALAX) 17 GM PACK PO SCH ×2 (09:00)
[2019-09-24] MEDS ORDERED: POLYETHYLENE GLYCOL 3350 238 GM BTL PO SCH (09:00)
--- NOTE | 2019-09-24 10:46 | Hospitalist Progress Note ---
Date of Service September 24, 2019 Assessment & Plan (1) Lower gastrointestinal hemorrhage: -the amount of blood passed does not seem consistent w/just hemorrhoids -> concerning for GI pathology as well - CT abdomen & pelvis without obstruction, inflammation or metastasis -GI consulted - colonoscopy tomorrow (2) Acute blood loss anemia: Hemoglobin 12.8 on admission, now 10.1 with continue GI bleeding Continue to follow hgb, no indication for transfusion at this point colonoscopy as above (3) Breast cancer metastasized to axillary lymph node: - Patient mentined a mass that was bothering her on her breast on admission -CT chest revealed "multiple enhancing masses throughout the right breast compatible with multicentric breast cancer, with the largest mass measuring up to 4.2 cm. This is associated with metastatic right axillary adenopathy" - Heme onc consulted - patient will have biopsy at the [facility] on October 10. -Patient explicitly stated she would not want to have surgery (4) Asthma: (5) Hypothyroidism: -Continue home levothyroxine (6) DVT prophylaxis: Ambulatory, SCDs No chemoprophylaxis for GI bleed Subjective Ms. De Souza continues to have some bright red bloody bowel movements this morning. She has no other GI symptoms or pain. She feels fatigued but otherwise has no other symptoms. Updated her daughter Crystal at bedside. ROS Constitutional: no chills, aches, sweats or fever Respiratory: no sob,cough, sputum, or wheezing Cardiac: no chest pain, palpitations, edema, orthopnea or lightheadedness GI: no abdominal pain, nausea, vomiting, diarrhea or constipation : no dysuria or hesitancy Extremities: no joint pain or weakness Skin: no rash All other systems reviewed and negative Physical Exam Physical Exam: General: no distress Eyes: normal inspection, PERLL Respiratory: chest non tender, clear to auscultation, normal breath sounds, no respiratory distress, no accessory muscle use Cardiac: regular rate and rhythm, no rub or gallop, no murmur, no edema, no jvd GI/: active bowel sounds, no abd pain or tenderness, soft, non distended Extremities: normal range of motion, normal strength, non tender Neuro/Psych: alert and oriented x 3, normal mood and affect Skin: normal color, dry Results & Data Vital Signs (Past 12 Hours) Vital Signs Temp Pulse Resp BP Pulse Ox 09/24/19 08:24 113/68 09/24/19 07:08 36.7 C 75 18 88/51 L 95 09/23/19 23:01 36.6 C 89 14 104/71 95 PG Care Time/CCT Total # of Minutes Spent Total Time Spent with Patient: Total time spent is greater than 50% in incident coordinator rdination of care (as documented) at patient's floor/unit and/or counseling patient:
[2019-09-24] MEDS ORDERED: MAGNESIUM CITRATE 296 ML/BTL PO STA (15:41)
--- NOTE | 2019-09-24 15:45 | Gastroenterology Progress Note ---
Date of Service September 24, 2019 Assessment & Plan (1) Lower gastrointestinal hemorrhage: enccourgaed patient to complete miralax prep and will give bottle of mag citrate. Discussed with Barbi regarding not sure if prep will be adequate but will attempt tomorrow one way or the other. [place] and if neg EGD tomorrow afternoon. Told Barbi visualization obvioiuslly dependent on prep. acute blood loss anemia--follow, continues to be slow drop diverticulosis--could be source of bleeding large HH--no abd pain or n/v or dysphagia nor process on chest CT (i.e no volvulus) that requires urgent surgical intervention. breast mass and axillary nodes per hospitalist. Subjective CC GI bleeding HPI Per nurse and patient the patient had one stool this am showed blood. According to nurse she has taken about 3/4 of her miralax prep. As best I can tell she had not had any further stools today. She denies abd pain. Review of Systems Respiratory: no dyspnea Cardiovascular: no chest pain Physical Exam Constitutional: WD/WN, vitals as above Respiratory: normal respiratory effort, lungs clear to auscultation Cardiovascular: RRR, no murmur, no edema Gastrointestinal (Abdomen): normal bowel sounds, soft, nontender, no hepatosplenomegaly Neurologic: PERRL, EOMI, accommodation nl, no face palsy, no dysarthria Psychiatric: A+Ox3, euthymic affect Results & Data Vital Signs (Past 12 Hours) Vital Signs Temp Pulse Resp BP Pulse Ox 09/24/19 15:24 36.5 C 74 16 113/73 95 09/24/19 08:24 113/68 09/24/19 07:08 36.7 C 75 18 88/51 L 95
[2019-09-25] MEDS: LEVOTHYROXINE SODIUM 75 MCG TABLET PO SCH (05:54)
[2019-09-25] MEDS ORDERED: SOD PHOSPHATE/SOD BIPHOSPHATE ENEMA 132 ML BTL PR STA (06:58)
[2019-09-25 07:18] LABS: Basophils # (auto) 0.02 K/uL (0-0.2); Basophils % (auto) 0.2 %; Eosinophils # (auto) 0.14 K/uL (0-0.5); Eosinophils % (auto) 1.4 %; Hematocrit (blood only) 27.6 % (37-47); Hemoglobin 9.3 g/dL (12.0-16.0); Immature Granulocytes # (auto) 0.03 K/uL (0.00-0.02); Immature Granulocytes % (auto) 0.3 %; Lymphocytes # (auto) 1.87 K/uL (1.2-3.4); Mean Corpuscular Hemoglobin 30.6 pg (25-34); Mean Corpuscular Volume 90.8 fL (80-100); Mean Platelet Volume 9.3 fL (7.4-10.4); Monocytes # (auto) 1.01 K/uL (0.11-0.59); Monocytes % (auto) 10.3 %; Neutrophils # (auto) 6.75 K/uL (1.4-6.5); Neutrophils % (auto) 68.8 %; Platelet Count 285 K/uL (130-400); RDW Coefficient of Variation 13.4 % (11.5-14.5); RDW Standard Deviation 44.2 fL (36.4-46.3); Red Blood Count 3.04 M/uL (4.2-5.4); White Blood Count 9.82 K/uL (4.8-10.8)
[2019-09-25 07:22] LABS: Mean Corpuscular Hgb Conc 33.7 g/dL (32-36)
[2019-09-25 07:35] LABS: Albumin Level 2.9 gm/dl (3.4-5.0); Creatinine Clr Calc Pharmacy 51.4 ml/min; Est GFR (African American) 92.2; Est GFR (Non-African American) 79.5; Potassium 3.6 mmol/L (3.5-5.1)
[2019-09-25 07:38] LABS: Albumin Globulin Ratio 1.3 (0.9-2); Bilirubin,Total 0.7 mg/dl (0.2-1); Globulin 2.3 gm/dl (2.5-4.0); Total Protein 5.2 gm/dl (6.4-8.2)
[2019-09-25] MEDS: predniSONE 10 MG TABLET PO SCH (09:09)
--- NOTE | 2019-09-25 14:10 | History & Physical Report ---
Date of Service September 25, 2019 Assessment & Plan (1) Lower gastrointestinal hemorrhage: Colonoscopy today and if neg then consented for EGD as well. Procs and risks explained to patient which include but not limited to med reaction, bleeding, perforation, aspiration, and missed lesions. acute blood loss anemia--continue to monitor large HH--no pain to indicate surgical issue. History of Present Illness Chief Complaint: cc GI bleeding Primary Care Provider: Benigno Baldwin MD HPI Stools did not clear. Ongoing rectal bleeding, No abd pain Allergies Allergy/AdvReac Type Severity Reaction Status Date / Time Sulfa (Sulfonamide Allergy Unknown Unknown Verified 09/21/19 15:31 Antibiotics) theophylline Allergy Unknown Unknown Verified 09/21/19 15:31 Home Medications Home Medications Medication Instructions Recorded Confirmed Type prednisone 10 mg tablet 10 mg PO DAILY #30 tab 09/11/19 09/21/19 Rx levothyroxine 75 mcg PO QAM 09/21/19 09/21/19 History Past Med/Surg History Medical History Asthma Hypothyroidism No significant past surgical history Social History Preferred Language: Danish Communication Ability: Effective 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 Beliefs That Will Affect Care: None marital status: / Current Living Situation: Family Feels Safe at Home: Yes Smoking Status: Unknown if ever smoked Hx Alcohol Use: No Hx Substance Use: No Review of Systems no dyspnea no chest pain Physical Exam Constitutional: WD/WN, vitals as above Respiratory: normal respiratory effort, lungs clear to auscultation Gastrointestinal (Abdomen): normal bowel sounds, soft, nontender, no hepatosplenomegaly Neurologic: PERRL, EOMI, accommodation nl, no face palsy, no dysarthria Psychiatric: A+Ox3, euthymic affect Results & Data Vital Signs (Past 12 Hours) Vital Signs Temp Pulse Pulse Resp BP Pulse Ox 09/25/19 13:37 36.5 C 89 16 123/77 95 09/25/19 12:21 36.6 C 84 18 103/71 97 09/25/19 08:00 36.5 C 88 16 100/62 93 Code Status & VTE Plan VTE Prophylaxis Plan VTE Prophylaxis will be ordered: Yes
--- NOTE | 2019-09-25 14:15 | Anesthesiology Consultation ---
Date of Service September 25, 2019 Assessment & Plan (1) Encounter for pre-operative examination: Chart Review Chart Review: Acceptable Risk for Surgery and Patient NOT seen in Pre Admission Testing Consults Requested none History Surgery Operation Date: 09/25/19 16:45 Proposed Procedures p Colonoscopy EGD Dr Talavera - Stevo Talavera Height/Weight Height: 5 ft 4 in Weight: 53.8 kg Allergies Allergy/AdvReac Type Severity Reaction Status Date / Time Sulfa (Sulfonamide Allergy Unknown Unknown Verified 09/21/19 15:31 Antibiotics) theophylline Allergy Unknown Unknown Verified 09/21/19 15:31 Medications Home Medications Medication Instructions Recorded Confirmed Last Taken prednisone 10 mg tablet 10 mg PO DAILY #30 tab 09/11/19 09/21/19 09/20/19 levothyroxine 75 mcg PO QAM 09/21/19 09/21/19 09/21/19 Active Medications Generic Name Dose Route Start Last Admin Trade Name Freq PRN Reason Stop Dose Admin Ioversol 93 ml 09/21/19 16:13 09/21/19 16:13 Optiray 320 100ml IV 09/25/19 16:12 93 ml ONCE PRN Administration Interaction Checking Ioversol 91 ml 09/22/19 17:25 09/22/19 17:26 Optiray 320 100ml IV 09/26/19 17:24 91 ml ONCE PRN Administration Interaction Checking Levothyroxine Sodium 75 mcg 09/22/19 06:30 09/25/19 05:54 Synthroid PO 10/22/19 06:29 75 mcg DAILYBB ROXY Administration Prednisone 10 mg 09/22/19 09:00 09/25/19 09:09 Prednisone PO 10/22/19 08:59 10 mg DAILY ROXY Administration NPO Date Last Intake of Fluids: 09/25/19 Time Last Intake of Fluids: 09:00 Date Last Intake of Solids: 09/22/19 Time Last Intake of Solids: 08:00 Past Medical History Medical History Asthma Hypothyroidism No significant past surgical history Social History Smoking Status: Unknown if ever smoked Hx Alcohol Use: No Hx Substance Use: No Physical Exam Vital Signs Last Vital Signs Temp 36.5 C 09/25/19 13:37 Pulse 89 09/25/19 13:37 Resp 16 09/25/19 13:37 BP 123/77 09/25/19 13:37 Pulse Ox 95 09/25/19 13:37 Testing Laboratory Results 09/25/19 07:07 09/25/19 07:07 PT 10.1 Seconds (9.0-12.0) 09/21/19 15:21 INR 1.0 (0.9-1.1) 09/21/19 15:21 APTT 21.9 Seconds (21.0-31.0) 09/21/19 15:21 Blood Type O Positive 09/21/19 15:21 Antibody Screen NEGATIVE 09/21/19 15:21
[2019-09-25] MEDS ORDERED: ePHEDrine sulfate 50 MG/ML AMP IV PRN (14:18)
[2019-09-25] MEDS ORDERED: ATROPINE SULFATE 0.1 MG/ML 10ML SYR IV PRN (14:18)
--- NOTE | 2019-09-25 14:54 | Hospitalist Progress Note ---
Date of Service September 25, 2019 Assessment & Plan (1) Lower gastrointestinal hemorrhage: Continue to admit for lower GI bleed. N.p.o. for colonoscopy today. GI prep already done CT abdomen & pelvis without obstruction, inflammation or metastasis Appreciate GI recommendations (2) Acute blood loss anemia: H&H 9.3/27.6 , dropped from 10.1 and 30.5 due to acute lower GI bleed. Patient is going to have colonoscopy today. Continue to follow hgb, no indication for transfusion at this point \\ (3) Breast cancer metastasized to axillary lymph node: Patient mentioned a mass that was bothering her on her breast on admission CT chest revealed "multiple enhancing masses throughout the right breast compatible with multicentric breast cancer, with the largest mass measuring up to 4.2 cm. This is associated with metastatic right axillary adenopathy" Heme onc consulted patient will have biopsy at the [facility] on October 10. Patient explicitly stated she would not want to have surgery (4) Asthma: Stable, patient is not on medicine at this time. Present on Admission?: Yes (5) Hypothyroidism: Continue home levothyroxine (6) DVT prophylaxis: Ambulatory, SCDs No chemoprophylaxis for GI bleed Subjective Patient seen and examined at the bedside. She is n.p.o. for colonoscopy this morning for lower GI bleed. Patient sitting up in the chair. She is reporting she is hungry. Patient reports that she continued to have dark blood this morning as well. Patient denies fever, chills, chest pain, shortness of breath, abdominal pain, frequency, urgency. Review of Systems Review of Systems: All systems reviewed & are unremarkable except as noted in HPI & below Physical Exam Constitutional: WD/WN, vitals as above + thin and comfortable; no acute distress Eyes: PERRL, conjunctivae normal, anicteric sclerae + anicteric sclerae ENMT: Mouth: no TMJ abnormality Mallampati Class: II Neck: normal visual inspection Respiratory: normal respiratory effort, lungs clear to auscultation normal respiratory effort Auscultation: lungs clear to auscultation bilaterally Cardiovascular: RRR, no murmur, no edema Rate/Rhythm: regular rate and regular rhythm Heart Sounds: no murmur Vessels: posterior tibial pulses present and dorsalis pedis pulses present Extremities: normal capillary refill; no calf tenderness and no pedal edema Chest (Breasts): Breast: + breast mass Gastrointestinal (Abdomen): normal bowel sounds, soft, nontender, no hepatosplenomegaly Inspection/Auscultation: normal bowel sounds; abdomen not distended Percussion/Palpation: abdomen soft; abdomen nontender Musculoskeletal: no cyanosis or clubbing, extremities motor strength 5/5 Head/Neck/Chest: + abnormal inspection of chest wall (3-4cm indurated mass in right breast w/surrounding erythema, no drainage) Skin: no rashes, warm and dry Neurologic: patellar DTR's 2+ bilat, sensation intact and PERRL, EOMI, accommodation nl, no face palsy, no dysarthria Psychiatric: A+Ox3, euthymic affect Lymphatic: + axillary lymphadenopathy (on the right) Results & Data Vital Signs (Past 12 Hours) Vital Signs Temp Pulse Pulse Resp BP Pulse Ox 09/25/19 13:37 36.5 C 89 16 123/77 95 09/25/19 12:21 36.6 C 84 18 103/71 97 09/25/19 08:00 36.5 C 88 16 100/62 93 PG Care Time/CCT Total # of Minutes Spent Total Time Spent with Patient: Total time spent is greater than 50% in coordination of care (as documented) at patient's floor/unit and/or counseling patient:
[2019-09-25] MEDS ORDERED: PHENYLEPHRINE 100MCG/ML 5ML SYR ONE (15:16)
[2019-09-25] MEDS ORDERED: PROPOFOL IV EMULSION 10 MG/ML 20 ML VIAL IV ONE (15:16)
[2019-09-25] MEDS ORDERED: LIDOCAINE HCL 2% 2 ML VIAL/AMP(20MG/ML) INFIL ONE (15:16)
--- NOTE | 2019-09-25 15:32 | GI REPORT ---
Patient Name: Mary Jo De Souza Procedure Date: 09/25/2019 2:10 PM Date of : 1930 Admit Type: Inpatient Age: 89 Gender: Female Attending MD: Stevo Talavera MD Procedure: Colonoscopy Providers: Stevo Talavera MD Referring MD: Abdifatah Gray Md Indications: Hematochezia, Acute post hemorrhagic anemia Medicines: Monitored Anesthesia Care Complications: No immediate complications. Estimated blood loss: None. Estimated Blood Loss: Estimated blood loss: none. Procedure: Pre-Anesthesia Assessment: - The risks and benefits of the procedure and the sedation options and risks were discussed with the patient. All questions were answered and informed consent was obtained. - Patient identification and proposed procedure were verified prior to the procedure by the physician, the nurse and the gold beater. The procedure was verified in the procedure room. After I obtained informed consent, the scope was passed under direct vision. Throughout the procedure, the patient's blood pressure, pulse, and oxygen saturations were monitored continuously. The Colonoscope was introduced through the anus and advanced to the cecum, identified by appendiceal orifice and ileocecal valve. The colonoscopy was technically difficult and complex due to poor bowel prep, a redundant colon and significant looping. Successful completion of the procedure was aided by using manual pressure, straightening and shortening the scope to obtain bowel loop reduction and lavage. The patient tolerated the procedure well. Procedure and risks explained to patient which include but not limited to med reaction, bleeding, perforation, aspiration and missed lesions. Judicious gas insufflation and gas removal done on the way out. The lumen always well visualized when advancing the scope. Washes and suctioning used as needed Retroflexion in the rectum to look at the distal rectum and anal canal attempted but could not be done. Attempted to intubate TI but not successfu. Findings: Multiple small and large-mouthed diverticula were found from rectum to cecum. The colon (entire examined portion) was significantly redundant. Advancing the scope required using manual pressure and straightening and shortening the scope to obtain bowel loop reduction. Red blood was found from anus to descending colon. Lavage of the area was performed using copious amounts, resulting in clearance with fair visualization. A large amount of semi-liquid brown stool was found from descending colon to cecum, interfering with visualization. Lavage of the area was performed using copious amounts, resulting in clearance with fair visualization. A 4 mm polyp was found in the rectum. The polyp was sessile. Internal hemorrhoids were found during retroflexion. The hemorrhoids were large. The exam was otherwise without abnormality. Impression: - Diverticulosis from rectum to cecum. - Redundant colon. - Blood from anus to descending colon. - Stool from descending to cecum. - One 4 mm polyp in the rectum. - Internal hemorrhoids. - The examination was otherwise normal. - No specimens collected. Recommendation: - [facility]. - Fresh blood in the left colon in association suggests diverticular bleed as etiology. Extensive lavage done and not reaccumlation of blood so could not identify exact bleeding source. Stevo Talavera M.D. Stevo Talavera MD 09/25/2019 3:32:10 PM This report has been signed electronically. Note Initiated On: 09/25/2019 2:10 PM Number of Addenda: 0 I attest to the content of the Intraoperative Record and orders documented therein, exceptions below {[id number]}
--- NOTE | 2019-09-25 15:35 | Post Operative Brief Note ---
Immediate Post Op Note v1 Date of Surgery September 25, 2019 Pre & Post Diagnosis Operation Date: 09/25/19 16:45 Pre-Op Diagnosis: RECTAL BLEEDING Post-Op Diagnosis: Poor Prep, Redundant Colon, Diverticulosis, Rectal Polyp and Hemorrhoids I identified the patient and participated in the time-out.: Yes Procedure Operation Date: 09/25/19 16:45 Actual Procedures p Colonoscopy - Stevo Talavera Discussed with daughter in law Barbi. Diverticular etiology. Not bleeding at present. Had not bled actively enough for IR to be of help and surgery not desired. Hopefully will not rebleed. Clear liquid diet. Transfuse if needed. Recommend IV Fe if ok with hosipitalist. Surgeon Stevo Talavera Home Care Liaison see report Estimated Blood Loss 0 Findings Consistent with Post-Op Diagnosis
--- NOTE | 2019-09-25 16:59 | Anesthesiology Progress Note ---
Date of Service September 25, 2019 Anesthesia Post Procedure Vital Signs Vital Signs: Temp Pulse Pulse Resp BP Pulse Ox 09/25/19 16:34 36.7 C 80 18 116/77 98 09/25/19 16:05 36.4 C L 78 16 124/70 99 09/25/19 15:47 71 18 121/74 96 09/25/19 15:34 70 18 117/67 98 09/25/19 15:17 36.5 C 74 16 101/59 L 99 09/25/19 13:37 36.5 C 89 16 123/77 95 09/25/19 12:21 36.6 C 84 18 103/71 97 09/25/19 08:00 36.5 C 88 16 100/62 93 09/24/19 22:55 36.8 C 84 16 112/70 92 Transfer of Care Handoff Completed per policy Notes Mental Status: alert / awake / arousable Patient Amnestic to Procedure: Yes Nausea / Vomiting: adequately controlled Pain: adequately controlled Airway Patency, RR, SpO2: stable & adequate BP & HR: stable & adequate Hydration State: stable & adequate Anesthetic Complications: no major complications apparent and Pt Satisfied with anesthetic care
[2019-09-26 05:40] LABS: Basophils # (auto) 0.01 K/uL (0-0.2); Basophils % (auto) 0.1 %; Eosinophils % (auto) 1.1 %; Hematocrit (blood only) 27.3 % (37-47); Immature Granulocytes # (auto) 0.04 K/uL (0.00-0.02); Immature Granulocytes % (auto) 0.4 %; Lymphocytes # (auto) 1.46 K/uL (1.2-3.4); Lymphocytes % (auto) 15.6 %; Mean Corpuscular Hemoglobin 30.6 pg (25-34); Mean Corpuscular Volume 92.9 fL (80-100); Mean Platelet Volume 9.9 fL (7.4-10.4); Monocytes # (auto) 0.91 K/uL (0.11-0.59); Monocytes % (auto) 9.7 %; Neutrophils # (auto) 6.85 K/uL (1.4-6.5); Neutrophils % (auto) 73.1 %; Platelet Count 295 K/uL (130-400); RDW Coefficient of Variation 13.5 % (11.5-14.5); RDW Standard Deviation 45.4 fL (36.4-46.3); Red Blood Count 2.94 M/uL (4.2-5.4); White Blood Count 9.37 K/uL (4.8-10.8)
[2019-09-26 06:18] LABS: Albumin Level 2.7 gm/dl (3.4-5.0); BUN Creatinine Ratio 15.5 (10-20); Calcium 7.9 mg/dl (8.5-10.1); Creatinine Clr Calc Pharmacy 54.9 ml/min; Est GFR (African American) 94.2; Est GFR (Non-African American) 81.3; Potassium 3.3 mmol/L (3.5-5.1)
[2019-09-26 06:21] LABS: Albumin Globulin Ratio 1.1 (0.9-2); Bilirubin,Total 0.9 mg/dl (0.2-1); Globulin 2.4 gm/dl (2.5-4.0); Total Protein 5.1 gm/dl (6.4-8.2)
[2019-09-26] MEDS: LEVOTHYROXINE SODIUM 75 MCG TABLET PO SCH (06:25)
[2019-09-26] MEDS: predniSONE 10 MG TABLET PO SCH (08:38)
--- NOTE | 2019-09-26 09:21 | Hospitalist Progress Note ---
Date of Service September 26, 2019 Assessment & Plan (1) Lower gastrointestinal hemorrhage: Patient requested to be discharged home with her family. She understands that GI bleeding can occur again and she needs to follow-up with PCP and gastroenterology. She also understands that she has to follow-up with hematology oncology for new onset of breast cancer. Patient says she patient agrees with the plan. Appreciate GI recommendations (2) Acute blood loss anemia: H&H 9.0/27.3 ,Stable, patient will follow-up with PCP within the next few days and check her CBC again. ER warnings given and patient informed if any bleeding in the stool that she should report herself to the hospital immediately. Patient underwent colonoscopy yesterday. She tolerated procedure well. No bleeding found during the colonoscopy. Given IV Iron. Follow up with GI within 3 weeks for chronic lower GI bleed. 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 This is associated with metastatic right axillary adenopathy" Heme onc consulted patient will have biopsy at the [facility] on October 10. Patient explicitly stated she would not want to have surgery. Will schedule her to see Hematology/Oncology. (4) Asthma: Stable, continue low home dose of prednisone. (5) Hypothyroidism: Continue home levothyroxine (6) DVT prophylaxis: Ambulatory, SCDs No chemoprophylaxis for GI bleed Subjective Patient seen and examined at the bedside.Patient is eager to go home. She reports no bowel movement this morning. Gastroenterology recommendation reviewed with her. She agrees to follow-up with them in 3 weeks and follow-up with hematology oncology for new onset of breast cancer as soon as possible. Patient also agreed that she is going to follow-up with the PCP within 1 week and to do at that point complete blood count and recheck her H&H. Today patient hemoglobin hematocrits are stable around 9 and patient does not have symptomatic anemia. Patient also received IV iron. Which she tolerated well.Patient is eager to go home. She reports no bloody bowel movement this morning. Gastroenterology recommendation reviewed with her. She agrees to follow-up with them in 3 weeks and follow-up with gastroenterology and hematology oncology for new onset of breast cancer and as soon as possible. Patient also agreed that she is going to follow-up with the PCP within 1 week and to do at that point complete blood count and recheck her H&H. Today patient hemoglobin hematocrits are stable around 9/27.3 and patient does not have symptomatic anemia. Patient also received IV iron. Which she tolerated well. Patient denies fever, chills, chest pain, shortness of breath, abdominal pain, frequency, urgency. Review of Systems Review of Systems: All systems reviewed & are unremarkable except as noted in HPI & below Physical Exam Constitutional: WD/WN, vitals as above + thin and comfortable; no acute distress Eyes: PERRL, conjunctivae normal, anicteric sclerae + anicteric sclerae ENMT: Mouth: no TMJ abnormality Mallampati Class: II Neck: normal visual inspection Respiratory: normal respiratory effort, lungs clear to auscultation normal respiratory effort Auscultation: lungs clear to auscultation bilaterally Cardiovascular: RRR, no murmur, no edema Rate/Rhythm: regular rate and regular rhythm Heart Sounds: no murmur Vessels: posterior tibial pulses present and dorsalis pedis pulses present Extremities: normal capillary refill; no calf tenderness and no pedal edema Chest (Breasts): Breast: + breast mass Gastrointestinal (Abdomen): normal bowel sounds, soft, nontender, no hepatosplenomegaly Inspection/Auscultation: normal bowel sounds; abdomen not distended Percussion/Palpation: abdomen soft; abdomen nontender Musculoskeletal: no cyanosis or clubbing, extremities motor strength 5/5 Head/Neck/Chest: + abnormal inspection of chest wall (3-4cm indurated mass in right breast w/surrounding erythema, no drainage) Skin: no rashes, warm and dry Neurologic: patellar DTR's 2+ bilat, sensation intact and PERRL, EOMI, accommodation nl, no face palsy, no dysarthria Psychiatric: A+Ox3, euthymic affect Lymphatic: + axillary lymphadenopathy (on the right) Results & Data Vital Signs (Past 12 Hours) Vital Signs Temp Pulse Resp BP Pulse Ox 09/26/19 08:23 36.9 C 89 18 120/70 95 09/26/19 03:15 36.6 C 80 16 115/67 97 09/25/19 23:15 37 C 79 16 106/62 97 PG Care Time/CCT Total # of Minutes Spent Total Time Spent with Patient: Total time spent is greater than 50% in coordination of care (as documented) at patient's floor/unit and/or counseling patient:
--- NOTE | 2019-09-26 10:01 | Anesthesiology Progress Note ---
Date of Service September 26, 2019 Anesthesia Post Procedure Vital Signs Vital Signs: Temp Pulse Pulse Resp BP Pulse Ox 09/26/19 08:23 36.9 C 89 18 120/70 95 09/26/19 03:15 36.6 C 80 16 115/67 97 09/25/19 23:15 37 C 79 16 106/62 97 09/25/19 19:08 36.7 C 89 18 100/66 97 09/25/19 17:59 76 18 110/70 98 09/25/19 17:10 36.8 C 81 18 107/64 99 09/25/19 16:34 36.7 C 80 18 116/77 98 09/25/19 16:05 36.4 C L 78 16 124/70 99 09/25/19 15:47 71 18 121/74 96 09/25/19 15:34 70 18 117/67 98 09/25/19 15:17 36.5 C 74 16 101/59 L 99 09/25/19 13:37 36.5 C 89 16 123/77 95 09/25/19 12:21 36.6 C 84 18 103/71 97 Notes Mental Status: alert / awake / arousable and participated in evaluation Nausea / Vomiting: adequately controlled Pain: adequately controlled Airway Patency, RR, SpO2: stable & adequate BP & HR: stable & adequate Hydration State: stable & adequate Anesthetic Complications: no major complications apparent
[2019-09-26] MEDS ORDERED: IRON SUCROSE 100 MG in 0.9 % SODIUM CHLORIDE 100 ML IV ONE (11:45)
--- NOTE | 2019-09-26 13:14 | Discharge Summary ---
Date of Service September 26, 2019 Admission HPI Per Admitting Provider HPI Stools did not clear. Ongoing rectal bleeding, No abd pain Admission Exam Per Admitting Provider Constitutional: WD/WN, vitals as above + hard of hearing Eyes: PERRL, conjunctivae normal, anicteric sclerae ENMT: external ear and nose normal, oropharynx normal Respiratory: normal respiratory effort, lungs clear to auscultation Cardiovascular: RRR, no murmur, no edema Vessels: posterior tibial pulses present and dorsalis pedis pulses present Extremities: normal capillary refill; no calf tenderness and no pedal edema Gastrointestinal (Abdomen): normal bowel sounds, soft, nontender, no hepatosplenomegaly Musculoskeletal: no cyanosis or clubbing, extremities motor strength 5/5 Head/Neck/Chest: + abnormal inspection of chest wall (3-4cm indurated mass in right breast w/surrounding erythema, no drainage) Neurologic: PERRL, EOMI, accommodation nl, no face palsy, no dysarthria Principal Diagnosis none Discharge Exam Constitutional WD/WN, vitals as above + thin and comfortable; no acute distress Eyes PERRL, conjunctivae normal, anicteric sclerae + anicteric sclerae ENMT Mouth: no TMJ abnormality Mallampati Class: II Neck normal visual inspection Respiratory normal respiratory effort, lungs clear to auscultation normal respiratory effort Auscultation: lungs clear to auscultation bilaterally Cardiovascular RRR, no murmur, no edema Rate/Rhythm: regular rate and regular rhythm Heart Sounds: no murmur Vessels: posterior tibial pulses present and dorsalis pedis pulses present Extremities: normal capillary refill; no calf tenderness and no pedal edema Chest (Breasts) Breast: + breast mass Gastrointestinal (Abdomen) normal bowel sounds, soft, nontender, no hepatosplenomegaly Inspection/Auscultation: normal bowel sounds; abdomen not distended Percussion/Palpation: abdomen soft; abdomen nontender Musculoskeletal no cyanosis or clubbing, extremities motor strength 5/5 Head/Neck/Chest: + abnormal inspection of chest wall (3-4cm indurated mass in right breast w/surrounding erythema, no drainage) Skin no rashes, warm and dry Neurologic patellar DTR's 2+ bilat, sensation intact and PERRL, EOMI, accommodation nl, no face palsy, no dysarthria Psychiatric A+Ox3, euthymic affect Lymphatic + axillary lymphadenopathy (on the right) Discharge Data Allergies Allergy/AdvReac Type Severity Reaction Status Date / Time Sulfa (Sulfonamide Allergy Unknown Unknown Verified 09/21/19 15:31 Antibiotics) theophylline Allergy Unknown Unknown Verified 09/21/19 15:31 Consultations 09/21/19 17:47 ED Decision to Admit Stat 09/21/19 21:20 Consult Case Management - Discharge Planning Routine Consult Gastroenterology Routine 09/22/19 09:26 Consult Oncology Routine Procedures Performed Operation Date: 09/25/19 16:45 Actual Procedures p Colonoscopy - Stevo Talavera Ordered Studies 09/21/19 15:48 CT chest w con Stat 09/22/19 11:16 CT abd pelvis oral and IV con Routine Hospital Course (1) Lower gastrointestinal hemorrhage: Patient requested to be discharged home with her family. She understands that GI bleeding can occur again and she needs to follow-up with PCP and gastroenterology. She also understands that she has to follow-up with hematology oncology for new onset of breast cancer. Patient says she patient agrees with the plan. Appreciate GI recommendations (2) Acute blood loss anemia: H&H 9.0/27.3 ,Stable, patient will follow-up with PCP within the next few days and check her CBC again. ER warnings given and patient informed if any bleeding in the stool that she should report herself to the hospital immediately. Patient underwent colonoscopy yesterday. She tolerated procedure well. No bleeding found during the colonoscopy. Given IV Iron. Follow up with GI within 3 weeks for chronic lower GI bleed. 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 This is associated with metastatic right axillary adenopathy" Heme onc consulted patient will have biopsy at the [facility] on October 10. Patient explicitly stated she would not want to have surgery. Will schedule her to see Hematology/Oncology. (4) Asthma: Stable, continue low home dose of prednisone. (5) Hypothyroidism: Continue home levothyroxine (6) DVT prophylaxis: Ambulatory, SCDs No chemoprophylaxis for GI bleed Total Time Total Time Spent Total Time Spent (In Minutes): >30 min Discharge Plan Discharge Items Patient Disposition: Home - Self-Care Reason For Visit: RECTAL BLEEDING,NEW ONSET BREAST CA Discharge Diagnosis: Lower GI bleed, New onset breast cancer. Condition on Discharge: Good Health Concerns: Noncompliance Activity: As commented below Lifting: Gradually increase as tolerated Non-emergency contact: Primary Care Provider, Submarine Worker and Oncologist Call non-emergency contact if: you have any medication questions, your symptoms worsen, your pain is not controlled, your pain is worsening, your pain is unusual for you, your pain is concerning for you, you have a fever, your rectal temperature is above 100.4 and your temperature is above 101 Follow-up/Referrals: [facility] [Other] - 10/10/19 12:30 pm (Please, follow up at [facility] on WednesdayOctober 10 at 12:30 pm. *The office is located in [address] of [facility], next to this hospital. There are no dietary restrictions, prior to this procedure. However, do not wear any perfume, powders, or deodorant to this appointment. If you have any questions, call the clinic at [phone].) Kerry Mcelroy PA-C [Physician [employer]rel [employer]aiser Helper] - 09/28/19 11:00 am (Please, follow up with Kerry Mcelroy PA-C on September 28 at 11:00 am. *If you need to change this appointment, call the office at [phone].) Diet: Low Fiber Addtl Attending Provider Instructions: Please follow-up with oncologist for new onset of breast cancer within the next 2 weeks. Please follow-up with primary care physician within 1 week and at that point check CBC labs. Please follow-up with gastroenterology within 3 weeks for chronic lower GI bleed. Pending Studies at Discharge: No Stand-Alone Forms: My [facility] [employer] [facility], Smoking Cessation Medications and DC Order Prescriptions: New Sulema-Sequels (iron-vit c) 200 mg (65 mg iron)-25 mg tablet extended release 1 tab PO DAILY Qty: 30 RF: 0 Vitamin B-12 1,000 mcg/mL drops 1 ml PO DAILY Qty: 60 RF: 0 folic acid 400 mcg tablet 400 mcg PO DAILY Qty: 30 RF: 0 Continued prednisone 10 mg tablet 10 mg PO DAILY Qty: 30 RF: 2 levothyroxine 75 mcg tablet 75 mcg PO QAM RF: 0 Discharge Orders: Discharge Order (Routine); Ordered 09/26/19 Ordered By: Abdifatah Gray Admission Data Admit Date/Time: 09/21/19 20:36 Attending Provider: Abdifatah Gray Admit Provider: Srinath Garcia Primary Care Provider: Benigno Baldwin Other Providers: Stevo Talavera ; Sohan Vang ; Eran Claros ; Jerry Holland Other Interventions: Discharge Summary Assessment (RN) Last Done: 09/25/19 15:34
== END 2019-09-26 15:25 | disposition home or self-care (01) | DRG 378 ==
LOC: ED 14:50 → 3W 20:36 → SUATTDRO 20:36 → 3W 21:00